=== PATIENT | male | born 1975 | race Caucasian/White ===

== ENCOUNTER 2019-05-16 13:45 | Inpatient (IN) | payer OTHER ==
[~2019-05-16] VITALS: Ht 190.5 cm; Wt 86.0 kg
[2019-05-16 13:49] VITALS: Ht 190.5 cm; Wt 86.0 kg
--- NOTE | 2019-05-16 13:49 | NUR ---
PT BIBA FOR WITNESSED SYNCOPAL EPISODE BY MOTHER WHILE "WORKING ON HIS CAR", PT APPEARS DIAPHORETIC, RESPONSIVE TO PAINFUL STIMULI, SPEECH IS SLURRED AND SLOW UPON ANSWERING QUESTIONS APPROPRIATELY BUT SLOWLY. 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
--- NOTE | 2019-05-16 13:59 | NUR ---
DR BARAJAS AT BEDSIDE FOR MD SANCHEZ, EKG IN PROGRESS, PT SKIN IS MOIST, PT LETHARGIC BUT RESPONDING TO PAINFUL STIMULI WHILE DR BARAJAS IS SPEAKING TO PT.
[2019-05-16 14:20] LABS: BASOPHIL % 0.2 % (0-2); PLATELET COUNT 259 x10^3mcL (130-400); RED CELL DISTRIBUTION WIDTH 13.4 % (11.5-14.5)
--- NOTE | 2019-05-16 14:30 | NUR ---
DR BARAJAS INFORMED OF PTS RECTAL TEMP 94.6, WARM BLANKETS APPLIED TO PT. NO FURTHER ORDERS AT THIS TIME.
[2019-05-16 14:33] LABS: CALCIUM 9.2 mg/dL (8.5-10.1); CARBON DIOXIDE 28.5 mmol/L (21-32); CHLORIDE SERUM 104 mmol/L (98-107); CREATININE SERUM 1.4 mg/dL (0.7-1.3); GFR1 59 mL/min; GLUCOSE SERUM 262 mg/dL (74-106); POTASSIUM SERUM 3.5 mmol/L (3.5-5.1); SODIUM SERUM 140 mmol/L (136-145)
--- NOTE | 2019-05-16 14:36 | NUR ---
PT TAKEN TO CT.
[2019-05-16 14:37] LABS: ALBUMIN 3.9 g/dL (3.4-5.0); ALKALINE PHOSPHATASE 44 U/L (46-116); ALT/SGPT 26 U/L (16-63); AST/SGOT 20 U/L (15-37); BILIRUBIN TOTAL 0.9 mg/dL (0.20-1.00); TOTAL PROTEIN, SERUM 7.5 g/dL (6.4-8.2)
[2019-05-16 14:56] LABS: microscopic required? YES; urine erythrocyte NEGATIVE (NEGATIVE)
[2019-05-16 15:04] LABS: AMPHETAMINE QUAL UR POSITIVE (See below)
--- NOTE | 2019-05-16 15:27 | NUR ---
ATTEMPTED TO TAKE PT'S TEMP ORALLY WITH NO SUCCESS.
--- NOTE | 2019-05-16 15:45 | NUR ---
BLANKET WARMER PLACED ON PT. DR BARAJAS MADE AWARE OF PT'S VS.
--- NOTE | 2019-05-16 15:45 | NUR ---
PT ROLLED ONTO SIDE WITH NO ASSISTANCE FOR RECTAL TEMP. APPEARS LESS LETHARGIC, DR BARAJAS MADE AWARE.
--- NOTE | 2019-05-16 15:51 | NUR ---
UPON MEDICATING PT, PT ALERT AND ORIENTED TO SELF, KNOWS HE'S IN THE "HOSPITAL", CANNOT RECALL WHAT OCCURED TO CAUSE HIM TO BE BROUGHT INTO ED.
--- NOTE | 2019-05-16 17:50 | NUR ---
FEELING NAUSEATED, MEDICATED WITH ZOFRAN, LETHARGIC AND SLEEPY BUT RESPONDS TO VERBAL STIMULI
--- NOTE | 2019-05-16 18:17 | NUR ---
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 HE WAS ACCORDING TO REPORTS FROM THE EMERGENCY ROOM DIAPHORETIC AND HAD BEEN DIFFICULT TO ARROUSE. THEN GAVE HIM NARCAN IN THE FIELD TIMES TWO AND HE WAS THEN ARROUSABLE. PATIENT WITH CLEAR BREATH SOUNDS AND STATES HE SMOKES AND ADMITS TO DOING METH IN THE LAST TWENTY FOUR HOURS. PATIENT STATES HE HAS BEEN ABLE TO URINATE AND HAD BEEN MOVING HIS BOWELS WITHOUT DIFFICULTY. PATIENT AHS PULST THAT ARE PALPABLE AND DENIES ANY HISTORY OF DIABETES, HTN OR CARDIAC. PATIENT HAS BEEN AMBULATORY AND AT THIS TIME IS SLEEPY AND THIRSTY. ICE CHIPS OFFERED. VITALS AT THIS TIME AT 138/42, 110, 18, 98%, AND IS WITH A TEMPTERATURE OPF 96.0. HER RECEIVED A WARMING BLANKET IN THE ER AND THE TEMPERATURE CAME UP FROM 92.4 TO 94.7 PRIOR TO ARRIVAL PATIENT AHS NOTED POSTIVE FOR THC AND AMPHETAMINES IN URINE DRUG TESTING. HE HAS MULTIPLE TATOOS AND LIVES WTIH HIS MOTHER AND GRANDMOTHER. STATES HE DOES NOT WORK AT THIS TIME.
[2019-05-16 18:35] VITALS: BP 138/42
--- NOTE | 2019-05-16 18:35 | NUR ---
IVF OF NS INITIATED AT 150 ML/HR TO LAC.
[2019-05-16 18:41] LABS: CHOLESTEROL/HDL RATIO 3.4; MAGNESIUM 2.3 mg/dL (1.8-2.4); PHOSPHOROUS 5.3 mg/dL (2.5-4.9)
--- NOTE | 2019-05-16 18:50 | NUR ---
MOTHER VISITED FOR A SHORT WHILE AND WENT TO GET SOMETHIG TO EAT. PATIENT IN NO DISTRESS AT THIS TIME.
--- NOTE | 2019-05-16 19:36 | NUR ---
RECEIVED REPORT FROM DOMINGO MILLS. PT IS ALERT AND ORIENTED X4. LETHARGIC, PUPILS SLUGGISH RESPONSE TO LIGHT. PT IS BREATHING E/U ON RA. LUNG SOUNDS CLEAR TO BILATERAL UPPER LOBES, DIMINISHED TO BILATERAL LOWER LOBES. S1 S2 HEART SOUNDS AUSCULTATED. CAP REFILL <3 SECONDS X4. SKIN IS WARM AND CONSISTENT WITH ETHNICITY. PULSES MODERATE X4. PERIPHERAL IV TO LEFT AC. NS INFUSING AT 150 ML/HR. ABD IS SOFT AND FLAT WITH ACTIVE BOWEL SOUNDS X4Q. NO EDEMA NOTED. GENERALIZED WEAKNESS. CROFT DRAINING VIA GRAVITY, URINE DUTCH WITH FAIR OUTPUT. ALL QUESTIONS AND CONCERNS ANSWERED.
--- NOTE | 2019-05-16 21:29 | NUR ---
MYRANDA FROM POISON CONTROL CALLED, ALL QUESTIONS AND CONCERNS ADDRESSED. RECOMMENDED THAT PT RECEIVE A FOLLOW UP EKG. WILL PAGE DR. MONTES FOR ORDERS.
[2019-05-17 05:17] LABS: BASOPHIL % 0.1 % (0-2); PLATELET COUNT 260 x10^3mcL (130-400); RED CELL DISTRIBUTION WIDTH 13.6 % (11.5-14.5)
[2019-05-17 05:34] LABS: CALCIUM 8.8 mg/dL (8.5-10.1); CARBON DIOXIDE 32.9 mmol/L (21-32); CHLORIDE SERUM 104 mmol/L (98-107); CREATININE SERUM 1.1 mg/dL (0.7-1.3); GFR1 > 60 mL/min; GLUCOSE SERUM 93 mg/dL (74-106); MAGNESIUM 1.9 mg/dL (1.8-2.4); PHOSPHOROUS 3.6 mg/dL (2.5-4.9); POTASSIUM SERUM 4.1 mmol/L (3.5-5.1); SODIUM SERUM 142 mmol/L (136-145)
[2019-05-17 07:28] VITALS: BP 136/82
--- NOTE | 2019-05-17 07:30 | NUR ---
PATIENT IS IN BED, BED IS TO THE LOWEST POSTION. PATIENT IS ON ROOM AIR, BREATHING ADEQUATELY AND THERE ARE NO SIGNS OF RESPIRATORY DISTRESS. RESOLUTION MANAGER IN PLACE, NSR. PATIENT HAS IV ACCESS NOTED TO LAC, NORMAL SALINE INFUSING AT 150 ML/HR. PATIENT IS ALERT AND ORIENTED X4 AND ABLE TO FOLLOW COMMANDS. PATIENT HAS A CROFT CATHETER DRAINING VIA GRAVITY. URINE IS YELLOW IN COLOR WITH FAIR OUTPUT. HEELS ARE OFF LOADED WITH PILLOWS, SKIN INTACT. CALL LIGHT WITHIN REACH, PATIENT STABLE. WILL CONTINUE TO MONITOR.
--- NOTE | 2019-05-17 10:54 | NUR ---
PATIENT IN BED RESTING COMFORTABLY. PATIENT STATES THAT THEY HAVE NO PAIN AT THIS TIME. PATIENT BREATHING ADEQUATELY, AND THERE ARE NO SIGNS OF RESPIRATORY DISTRESS. WILL CONTINUE TO MONITOR.
--- NOTE | 2019-05-17 11:13 | NUR ---
REPORT GIVEN TO DOMINGO NETTLES. ALL QUESTIONS ANSWERED. PATIENT READY FOR TRANSFER.
--- NOTE | 2019-05-17 11:22 | NUR ---
ECHOCARDIOGRAM COMPLETED.
--- NOTE | 2019-05-17 11:30 | NUR ---
RECEIVED PT. FROM ICU DEPT. PT. A/A/O X4. NO SOB, NO N/V NOTED. PT. DENIES ANY PAIN AT THIS TIME. IV SITE #1 NOTED TO R AC. IV SITE #2 NOTED TO L AC. IVF NS RESUMED AT 150 CC/HR. F/C DRAINING DUTCH URINE. SKIN INTACT. NO EDEMA NOTED. PT. IS PLACED ON TELE. MONITOR #8, WHICH IS SHOWING NSR. BED IN LOW POS., CALL LIGHT WITHIN REACH. SIDE RAILS UP X3.
[2019-05-17 11:35] VITALS: BP 142/85
--- NOTE | 2019-05-17 17:12 | NUR ---
REMAINS IN STABLE CONDITION AT THIS TIME. WILL CONTINUE TO MONITOR.
[2019-05-17 18:00] VITALS: BP 130/70
--- NOTE | 2019-05-17 19:05 | NUR ---
PT RECIEVED FROM THE DAY SHIFT RN. PT IS ALERT AND ORIENTED X4, CALM AND COOPERATIVE WITH CARE. NO COMPLAINT OF PAIN AT THIS TIME. IV INFUSING AND INTACT. SAFETY AND COMFORT MEASURES MAINTAINED, BED IN LOWEST POSITION, CALL LIGHT WITHIN REACH. WILL CONTINUE TO MONITOR
[2019-05-17 20:56] VITALS: BP 128/82
--- NOTE | 2019-05-17 21:38 | NUR ---
RECEIVED REPORT FROM [facility] SHIFT NURSE ZAINAB TO RESUME CARE OF PATIENT. PT RESTING IN BED W/ EYES CLOSED, NO ACUTE DISTRESS NOTED. WILL CONTINUE TO MONITOR PT.
--- NOTE | 2019-05-17 21:38 | NUR ---
REPORT GIVEN TO DOMINGO MARTEL.
--- NOTE | 2019-05-18 05:15 | NUR ---
PT RESTED IN INTERVALS DURING, GROGGY BUT AROUSEABLE. PT DENIES N/V/D DURING SHIFT. PT REMAINS CALM AND COOPERATIVE WITH CARE AT THIS TIME. IV SITE REMAINS PATENT TO [place] ROSA, NS @ 150 ML/HR. NO REDNESS, SWELLING OR PAIN NOTED. ALL COMFORT AND SAFETY MEASURES PROVIDED FOR, CALL LIGHT WITHIN REACH, BED IN LOWEST POSITION, WILL CONTINUE TO MONITOR.
[2019-05-18 05:20] VITALS: BP 141/81
[2019-05-18 06:38] LABS: CALCIUM 8.8 mg/dL (8.5-10.1); CARBON DIOXIDE 27.4 mmol/L (21-32); CHLORIDE SERUM 106 mmol/L (98-107); CREATININE SERUM 0.9 mg/dL (0.7-1.3); GFR1 > 60 mL/min; GLUCOSE SERUM 83 mg/dL (74-106); MAGNESIUM 1.9 mg/dL (1.8-2.4); PHOSPHOROUS 2.9 mg/dL (2.5-4.9); POTASSIUM SERUM 4.1 mmol/L (3.5-5.1); SODIUM SERUM 140 mmol/L (136-145)
[2019-05-18 06:46] LABS: BASOPHIL % 0.4 % (0-2); PLATELET COUNT 242 x10^3mcL (130-400); RED CELL DISTRIBUTION WIDTH 13.7 % (11.5-14.5)
--- NOTE | 2019-05-18 07:21 | NUR ---
ENDORSED ALL CARE TO DAYSHIFT NURSE, ALL QUESTIONS AND CONCERNS ADDRESSED, ALL SAFETY AND COMFORT MEASURES PROVIDED FOR, CALL LIGHT WIHTHIN REACH, BED IN LOWEST POSITION, WILL CONTINUE TO MONITOR.
--- NOTE | 2019-05-18 07:25 | NUR ---
RECEIVED PT. IN BED A/A/O X4. NO SOB, NO N/V NOTED. PT. DENIES ANY PAIN AT THIS TIME. PT. DENIES ANY DIZZINESS AT THE PRESENT TIME. NS RUNNING AT 150 CC/HR VIA IV SITE AT L AC. IV SITE #2 NOTED TO R AC. F/C DRAINING CLEAR YELLOW URINE. BED IN LOW POS., CALL LIGHT WITHIN REACH. SIDE RAILS UP X3.
[2019-05-18 08:54] VITALS: BP 147/81
[2019-05-18 08:55] VITALS: BP 134/68
--- NOTE | 2019-05-18 12:45 | NUR ---
D/C HOME INSTRUCTIONS GIVEN TO PT. WHO VERBALIZED UNDERSTANDING OF INSTRUCTIONS. IV SITES #1 AND #2 (R AC AND L AC) REMOVED. TELE. MONITOR #8 REMOVED AND RETURNED TO TELE. MONITOR STATION. PT. VOIDED FREELY POST F/C REMOVAL.
--- NOTE | 2019-05-18 13:05 | NUR ---
PT. IS BEING DISCHARGED IN STABLE CONDITION VIA WHEELCHAIR. ALL BELONGINGS SENT HOME WITH PT. UPON DISCHARGE. ACCOMPANIED BY MOTHER AT TIME OF DISCHARGE.
== END 2019-05-18 13:05 | disposition home or self-care (01) | DRG 812 ==
LOC: ED 13:45 → IC 16:45 → DU 05-17 11:30
PROVIDERS: Emergency Medicine; ADMIT General Practice
DX: T40.2X1A Poisoning by other opioids, accidental (unintentional), initial encounter (principal); N17.0 Acute kidney failure with tubular necrosis; G92 Toxic encephalopathy; T47.8X1A Poisoning by other agents primarily affecting gastrointestinal system, accidental (unintentional), initial encounter; R68.0 Hypothermia, not associated with low environmental temperature; Z80.9 Family history of malignant neoplasm, unspecified; Z82.49 Family history of ischemic heart disease and other diseases of the circulatory system; Z84.89 Family history of other specified conditions; Y92.89 Other specified places as the place of occurrence of the external cause
CPT/HCPCS: 82962; G0378; G0480; J2310; J2405; J7030; Q0092